=== PATIENT | female | born 1995 | race Caucasian/White ===

== ENCOUNTER 2020-05-15 12:10 | Outpatient (CLI) | payer OTHER, SELFPAY ==
[2020-05-15 13:03] LABS: Beta HCG Quantitative < 2.39 mIU/ML
== END 2020-05-15 12:11 | disposition home or self-care (01) ==
PROVIDERS: PCP Family Medicine; Visit Provider Obstetrics & Gynecology
DX: Z31.41 Encounter for fertility testing (principal)
CPT/HCPCS: 36415; 84702

== ENCOUNTER 2020-05-16 11:55 | Outpatient (CLI) | payer OTHER, SELFPAY ==
--- NOTE | ~2020-05-16 | XR_ITS ---
EXAMINATION: XR hysterosalpingogram INDICATION: Fertility assessment TECHNIQUE: Hysterosalpingogram was performed by Dr. Chris Tran MD with fluoroscopic guidance. I was present to obtain fluoroscopic images. Fluoroscopy exposure time was 0.2 minutes. The DAP for th is procedure was 0.9 Gycm2. FINDINGS: [employer] radiograph demonstrates an unremarkable pelvis. Fluoroscopic images demonstrate a no rmal appearing endometrial cavity which has been cannulated. Upon injection of contrast, both fallop bryn tubes opacify and are normal in appearance. There is free spillage bilaterally. Uterus is withou t evidence of synechia. IMPRESSION: Patent fallopian tubes. Reviewed, dictated and finalized at location A. TY SPEC IMPRESSION: Patent fallopian tubes.
== END 2020-05-16 11:56 | disposition home or self-care (01) ==
PROVIDERS: PCP Family Medicine; Visit Provider Obstetrics & Gynecology
DX: Z31.41 Encounter for fertility testing (principal)
CPT/HCPCS: 36415; 58340; 74740; 84702; Q9966

== ENCOUNTER → 2020-12-09 13:16 | Outpatient (CLI) | payer OTHER, SELFPAY ==
--- NOTE | ~2020-12-09 | US_ITS ---
EXAMINATION: US OB <= 14 weeks fetus DATE: 12/09/2020 13:41 INDICATION: First trimester dating, lower abdominal pain TECHNIQUE: Real-time pelvic transabdominal and transvaginal ultrasound was performed. COMPARISON: None. FINDINGS: The uterus measures 11.3 x 5.5 x 6.9 cm. There is an intrauterine gestational sac. A yolk sac is identified. heart motion is identified measuring 167 beats per minute (bpm) by M-mode Do ppler. The crown rump length measures 3.5 cm , which correlates with an estimated gestational a ge of 10 weeks and 2 day(s) (+/-) 6 day(s). The right ovary is not visualized however no right adnexal abnormality is seen. The left ovary measur es 5.6 x 5.5 x 5.6 cm and contains a 5 cm cyst. There is normal vascular flow in the left ovary. Ther e is no free fluid in the pelvis. IMPRESSION: 1. Live intrauterine with an estimated gestational age of 10 weeks and 2 day(s) (+/-) 6 day (s) and an estimated delivery date of 07/05/2021. Reviewed, dictated and finalized at location B. IMPRESSION: 1. Live intrauterine with an estimated gestational age of 10 weeks an d 2 day(s) (+/-) 6 day(s) and an estimated delivery date of 07/05/2021.
== END ==
PROVIDERS: Visit Provider Nurse Practitioner
DX: Z36.87 Encounter for antenatal screening for uncertain dates (principal); R10.2 Pelvic and perineal pain; Z3A.10 10 weeks gestation of pregnancy
CPT/HCPCS: 76801

== ENCOUNTER → 2021-02-07 08:45 | Outpatient (CLI) | payer OTHER, SELFPAY ==
--- NOTE | ~2021-02-07 | US_ITS ---
US OB /maternal detail DATE: 02/07/2021 09:15 INDICATION: anatomy screening TECHNIQUE: Real-time imaging and Doppler analysis COMPARISON: 12/09/2020 obstetrical ultrasound FINDINGS: The fetus is in vertex presentation, longitudinal lie. Posterior placenta, lower margin 6.3 centers above the internal os. Subjectively normal amount of amniotic fluid. cerebral ventricles, cerebellum, nuchal fold, nose and lips, spine appear normal. Four-chamber heart with normal outflow tracts. diaphragm is intact. Fluid is demonstrated in the stomach and urinary bladder. The kidneys appear normal. Three-vessel cord with normal insertion at abdominal wall. The extremities appear intact. Biparietal diameter 4.45 cm; 19 weeks 3 days Head circumference 15.89 cm; 18 weeks 5 days Abdominal circumference 14.46 cm; 19 weeks 5 days Femur length 3.12 cm; 19 weeks 5 days Composite age by Hadlock formula is 19 weeks 3 days +/- 1 week 3 days; HERMELINDA: 07/01/2021 Estimated weight is 304.2 +/- 45.6 g Estimated weight-GP: 87.7% Head circumference/abdominal circumference 1.10, within normal range of 1.08-1.26 IMPRESSION: Normal anatomy screen Reviewed, dictated and finalized at Location A. Reviewed, dictated and finalized at location A. THCARE RISK CONTROL CONSULTANT IMPRESSION: Normal anatomy screen
== END ==
PROVIDERS: Visit Provider Obstetrics & Gynecology
DX: Z36.9 Encounter for antenatal screening, unspecified (principal)
CPT/HCPCS: 76805

== ENCOUNTER 2021-02-07 13:52 | Emergency (ER) | payer OTHER, SELFPAY ==
[2021-02-07 13:55] VITALS: BP 126/77; PULSE 94; RESP 16; TEMP 36.9; O2SAT 100
[2021-02-07 15:19] LABS: Add Urine Microscopic? YES; Appearance Urine Cloudy (Clear); Bilirubin Urine Negative (Negative); Blood Urine Negative (Negative); Color Urine Yellow (Yellow); Glucose Urine UA Negative (Negative); Ketones Urine 2+ mg/dL (Negative); Leukocyte Esterase Ur Trace LEU/UL (Negative); Mucus Urine Rare /lpf; Nitrate Urine Negative (Negative); Protein Urine Negative (Negative); Specific Grav Ur 1.019 (1.001-1.035); Squamous Epithelial Cell Urine Few /hpf (Few); Urobilinogen Urine Negative mg/dL (<2.0)
--- NOTE | 2021-02-07 16:41 | ED.BACK ---
HPI - Back Pain/Injury General Chief Complaint: Back Pain/Injury Stated Complaint: right flank pain, 19 weeks preg Time Seen by Provider: 02/07/21 13:59 History of Present Illness HPI Narrative: Patient is a 25-year-old female who is 19 weeks that presents with right-sided back pain. Its inferior to the ribs and lateral that posterior to the midaxillary line. No urinary frequency urgency or dysuria. Pain is worse with twisting and standing and better with sitting down. Patient's OB recommend she be evaluated to make sure she has no UTI or kidney stones. Review of Systems Constitutional: Constitutional: Denies chills, Denies fever(s) and Denies weakness Gastrointestinal: Gastrointestinal: Denies abdominal pain, Denies diarrhea, Denies nausea and Denies vomiting Genitourinary: Genitourinary: Denies abnormal vaginal bleeding, Denies nocturia, Denies dysuria, Denies pelvic pain, Reports flank pain and Denies vaginal discharge Musculoskeletal: Musculoskeletal: Reports back pain, Denies arthralgias, Denies joint swelling and Reports muscle cramps PMFSH Past Medical History Medical History (Updated 02/07/21 @ 16:48 by Daniel Sandoval MD) Healthy female adult Surgical History Surgical History (Updated 02/07/21 @ 16:48 by Daniel Sandoval MD) No history of previous surgery Social History Social History (Updated 02/07/21 @ 16:48 by Daniel Sandoval MD) Smoking status: Never smoker Exam Narrative: GENERAL: Well-appearing, well-nourished, and in no acute distress. HEAD: Normocephalic, atraumatic. CHEST: Clear to auscultation. No respiratory distress. HEART: Regular rate and rhythm. Normal peripheral pulses. ABDOMEN: Soft, nontender, nondistended. Back: No reproducible midline tenderness of thoracic or lumbar spine. No reproducible paraspinal muscular tenderness at these levels. EXTREMITIES: Normal range of motion. No edema. NEURO: Alert and oriented x3. PSYCH: Normal mood and affect. Course Course Emergency Course: Patient informed of results. Recommend increase fluid/food intake given ketones. Discharge. Vital Signs Vital signs: Vital Signs Temperature 98.4 F 02/07/21 13:55 Pulse Rate 94 02/07/21 13:55 Respiratory Rate 16 02/07/21 13:55 Blood Pressure 126/77 02/07/21 13:55 Pulse Oximetry 100 02/07/21 13:55 Temperature 98.4 F 02/07/21 13:55 Pulse Rate 94 02/07/21 13:55 Respiratory Rate 16 02/07/21 13:55 Blood Pressure 126/77 02/07/21 13:55 Pulse Oximetry 100 02/07/21 13:55 MDM - Back Pain/Injury Lab Data Labs: Lab Results 02/07/21 Range/Units 15:05 Urine Color Yellow (Yellow) Urine Appearance Cloudy H (Clear) Urine pH 6.0 (5.0-9.0) Ur Specific [place] 1.019 (1.001-1.035) Urine Protein Negative (Negative) mg/dL Urine Glucose (UA) Negative (Negative) mg/dL Urine Ketones 2+ H (Negative) mg/dL Ur Blood (Man) Negative (Negative) Urine Nitrate Negative (Negative) Urine Bilirubin Negative (Negative) Urine Urobilinogen Negative (<2.0) mg/dL Leukocyte Esterase Rfl Trace H (Negative) ANALI/UL Urine RBC 3-5 H (0-2) /hpf Urine WBC 4-6 H /hpf Ur Squamous Epith Cells Few (Few) /hpf Urine Mucus Rare /lpf Discharge Plan Discharge Clinical Impression: Muscle spasm of back Patient Disposition: Home, Self-Care Condition: Stable Instructions: Muscle Spasm (ED) Additional Instructions: Return the ER if you have burning urination, you have fever of 100.4 ?F, you cannot keep down food or water, you have additional concerns. Take Tylenol as needed for pain. Follow-up/Referrals: Chris Tran MD [Primary Care Provider] - 1 Week
[2021-02-07 16:46] VITALS: BP 130/72; PULSE 80; RESP 18; O2SAT 99
== END 2021-02-07 16:47 | disposition home or self-care (01) ==
PROVIDERS: Emergency Provider Emergency Medicine; PCP Obstetrics & Gynecology
DX: O99.891 Other specified diseases and conditions complicating pregnancy (principal); M62.830 Muscle spasm of back; Z3A.19 19 weeks gestation of pregnancy
CPT/HCPCS: 81001; 99283

== ENCOUNTER 2021-05-26 11:05 | Outpatient (RCR) | payer OTHER, SELFPAY ==
[2021-05-12 11:45] VITALS: BP 104/69; PULSE 65
[2021-05-19 11:22] VITALS: BP 119/73; PULSE 80
--- NOTE | ~2021-05-26 | US_ITS ---
EXAMINATION: US OB BPP wo non-stress EXAM DATE: 05/12/2021 11:36 INDICATION: Small head circumference/variable decelerations. 3rd trimester. TECHNIQUE: Pelvic obstetrical transabdominal sonogram was performed by a technologist. There are mu ltiple grayscale and Doppler images available for interpretation. Comparison is made to prior examina tion from 02/07/2021. FINDINGS: There is a single fetus identified in vertex presentation with a heart rate of 145 beats p er minute. The placenta is located in the posterior position. There is no sonographic evidence of re troplacental hemorrhage identified. BIOPHYSICAL PROFILE (performed by the technologist) breathing (30 sec sustained breathing in 30 minutes): 2 out of 2 movement (3 gross body movements in 30 minutes): 2 out of 2 tone (one episode of bxfpihc-xonjlugsw-shsywqn limb movement): 2 out of 2 Amniotic fluid pocket (2 cm): 2 out of 2 Total score: 8 out of 8 IMPRESSION: 1. Single fetus with heart rate of 145 bpm. 2. Normal biophysical profile score of 8 out of 8. Reviewed, dictated and finalized at location B. NING STRATEGIST
--- NOTE | ~2021-05-26 | US_ITS ---
EXAMINATION: US OB BPP wo non-stress DATE: 05/19/2021 11:53 INDICATION: Small head circumference and variable decelerations during third trimester TECHNIQUE: Real-time pelvic ultrasound was performed. The interpreting radiologist was not present fo r the study. COMPARISON: 05/12/2021 FINDINGS: There is a single living fetus in vertex presentation. The placenta is posterior. heart rate is 146 beats per minute (bpm). Biophysical profile performed by the technologist: breathing (30 sec sustained breathing in 30 minutes): 2 out of 2 movement (3 gross body movements in 30 minutes): 2 out of 2 tone (one episode of cgnzkmf-gypeyusxn-drituva limb movement): 2 out of 2 Amniotic fluid pocket (2 cm): 2 out of 2 Total score: 8 out of 8 IMPRESSION: 1. Single living fetus in vertex presentation. 2. Biophysical profile 8 out of 8. Reviewed, dictated and finalized at location A. T VAULT CLERK
[2021-05-26 10:31] VITALS: BP 104/67; PULSE 67
== END 2021-08-10 23:59 | disposition home or self-care (01) ==
LOC: ANHOBOP 11:05
PROVIDERS: Visit Provider Obstetrics & Gynecology
DX: O36.8930 Maternal care for other specified fetal problems, third trimester, not applicable or unspecified (principal); Z3A.32 32 weeks gestation of pregnancy; Z3A.33 33 weeks gestation of pregnancy; Z3A.34 34 weeks gestation of pregnancy
CPT/HCPCS: 59025; 76819

== ENCOUNTER 2021-05-31 14:44 | Observation (INO) | payer OTHER, SELFPAY ==
[2021-05-31] VITALS (18 sets, daily range): BP systolic 109–118; BP diastolic 72–81; PULSE 77–120; O2SAT 98–100
--- NOTE | 2021-05-31 14:46 | PC.NURSE ---
[id number]- Spoke with Dr. Matias Flores, patient complaint of contractions q3 min. SVE fingertip funneling to closed. orders to give up to 3 doses of terbutaline. If contractions subside, may discharge patient to home.
[2021-05-31] MEDS: TERBUTALINE SULFATE 1 MG/ML VIAL 0.25 MG SUB-Q (14:52)
--- NOTE | 2021-06-22 08:47 | PM.OBTRLD ---
OB - Triage/Final Diagnosis Visit Information Comments/Additional reasons for admission: I have assessed the risk for this patient, Samm Albarran, and determined that she would benefit from observation care. Final Diagnosis (1) False labor before 37 completed weeks of gestation during in third trimester, antepartum: Code(s): O47.03 - False labor before 37 completed weeks of gestation, third trimester Status: Acute
== END 2021-05-31 16:02 | disposition home or self-care (01) ==
PROVIDERS: Admitting Provider Obstetrics & Gynecology; Visit Provider Obstetrics & Gynecology
DX: O47.03 False labor before 37 completed weeks of gestation, third trimester (principal); Z3A.00 Weeks of gestation of pregnancy not specified
CPT/HCPCS: 96372; G0378; G0379; J3105

== ENCOUNTER 2021-06-01 03:28 | Observation (INO) | payer OTHER, SELFPAY ==
[2021-06-01] VITALS (31 sets, daily range): BP systolic 102–127; BP diastolic 41–86; PULSE 72–121; O2SAT 97–99; BMI 27.4
--- NOTE | ~2021-06-01 | US_ITS ---
EXAMINATION: US OB follow up DATE: 06/01/2021 10:42 INDICATION: decelerations. Evaluate growth. TECHNIQUE: Real-time transabdominal obstetric ultrasound. FINDINGS: Comparison to multiple prior studies sequentially, with oldest reviewed study dated 2020. There is a single living fetus in vertex presentation. The placenta is posterior without placenta pr evia. cardiac activity and movement is noted with a heart rate of 157 beats per minute. T he amniotic fluid volume is lower normal. GILBERT measures 7.9 cm (normal range for gestational age is 7. 9-24.9 cm). The following biometric data were obtained: BPD: 77mm corresponds to gestational age 30 weeks 6 days. Head circumference: 302mm corresponds to gestational age 33 weeks 4 days. Abdominal circumference: 293mm corresponds to gestational age 33 weeks 2 days. Femur length: 66mm corresponds to gestational age 33 weeks 5 days. Estimated weight: 2144 grams +/- 321grams, 7.4% by Hadlock method. IMPRESSION: 1. Single living intrauterine in vertex presentation with an estimated gestational age of 35 weeks 1 days by inititial ultrasound. Decreased interval growth. Estimated weight is 7.4% using Hadlock method. 2. Amniotic fluid index is lower limits of normal measuring 7.9 cm. Reviewed, dictated and finalized at location A. ATIONS PLANT ATTENDANT IMPRESSION: 1. Single living intrauterine in vertex presentation with an estima vanesa gestational age of 35 weeks 1 days by inititial ultrasound. Decreased inter kayode growth. Estimated weight is 7.4% using Hadlock method. 2. Amniotic fluid index is lower limits of normal measuring 7.9 cm.
[2021-06-01 04:40] LABS: Add Urine Microscopic? YES; Appearance Urine Clear (Clear); Bacteria Urine Trace /hpf; Bilirubin Urine Negative (Negative); Blood Urine Negative (Negative); Color Urine Straw (Yellow); Glucose Urine UA Negative (Negative); Ketones Urine Negative (Negative); Leukocyte Esterase Ur 1+ LEU/UL (NEGATIVE); Mucus Urine Rare /lpf; Nitrate Urine Negative (Negative); Protein Urine Negative (Negative); Specific Grav Ur 1.008 (1.001-1.035); Squamous Epithelial Cell Urine Few /hpf (Few); Urobilinogen Urine Negative mg/dL (<2.0)
[2021-06-01] MEDS: TERBUTALINE SULFATE 1 MG/ML VIAL 0.25 MG SUB-Q ×2 (04:41→06:34)
[2021-06-01] MEDS: DEXTROSE 5%/LACTATED RINGERS 1,000 ML 999 ML IV CONT (09:14)
[2021-06-01 09:20] LABS: Basophils Percent Auto 0.2 % (0.2-1.2); Hematocrit 41.2 % (37.0-47.0); Hemoglobin 13.8 g/dL (12.0-15.0); Immature Granulocyte Absolute 0.09 K/mm3 (0.00-0.031); Immature Granulocyte Percent A 0.7 % (0-0.5); Lymphocytes Absolute Auto 1.24 K/mm3 (0.9-3.2); Lymphocytes Percent Auto 9.4 % (18.3-44.2); Mean Corpuscular HGB Conc 33.5 g/dl (32-36); Mean Corpuscular Hemoglobin 31.6 pg (26-34); Mean Corpuscular Volume 94.3 fl (80-100); Mean Platelet Volume 11.6 fl (7.4-10.4); Monocytes Absolute Auto 0.8 K/mm3 (0.1-0.6); Monocytes Percent Auto 6.1 % (2.6-8.5); Neutrophils Absolute Auto 11.1 K/mm3 (1.3-6.7); Neutrophils Percent Auto 83.6 % (45.5-73.1); Platelet Count Result 210 k/mm3 (150-375); Red Blood Count 4.37 M/mm3 (4.2-5.4); Red Cell Distribution Width 13.2 % (11.5-14.5); White Blood Count 13.2 K/mm3 (4.5-10.0)
[2021-06-01 09:35] LABS: Alanine Aminotransferase 15 U/L (4-35); Albumin Level 4.1 g/dL (3.5-5.1); Alkaline Phosphatase 163 U/L (38-126); Anion Gap 7 mmol/L (8-16); Aspartate Amino Transferase 23 U/L (14-36); Bilirubin,Total 0.4 mg/dL (0.2-1.3); Blood Urea Nitrogen 4 mg/dL (7-17); Calcium 8.8 mg/dL (8.4-10.2); Carbon Dioxide 20 mmol/L (22-30); Chloride 107 mmol/L (98-107); Estimated Glomerular Filt Rate > 60; Glucose 98 mg/dL (65-110); Potassium 3.6 mmol/L (3.4-5.0); Sodium 134 mmol/L (137-145)
[2021-06-01] MEDS: NIFEdipine 10 MG CAPSULE PO (10:46)
--- NOTE | 2021-06-01 13:34 | WPDOBADMIT ---
Obstetrics - Admit Note Admission Note: 25 y/o G1 at 35 1/7 weeks gestation here with contractions. Has felt better after IV fluids and nifedipine. No vaginal bleeding. Good movement. AVSS NST reactive TOCO: irregular contractions ABD soft, nontender, gravid, vertex EXT nontender Cervix 50/-3. Unchanged. A: IUP at 35 1/7 weeks with contractions, stable. P: Home on Procardia 10 mg po q 6 hours. F/u this week in office.
--- NOTE | 2021-06-01 13:42 | OBADM ---
This patient, Samm Albarran, admitted to the OB room Labor/Delivery/Recovery 105 for observation. Patient/family oriented to hospital policies and general routines including ID bracelet, bed and alarms, visiting hours, pain management, procedures, bathroom and other care routines, personal items, smoking policy, room service/diet, and visiting hours. Patient/Family are encouraged to report perceived risks to care and to ask questions if they do not understand what they are told or what they should do.
--- NOTE | 2021-06-02 07:42 | P.PNOB_ITS ---
OB - Triage/Final Diagnosis Visit Information Date of evaluation: 06/01/21 Reason for evaluation: threatened labor Comments/Additional reasons for admission: I have assessed the risk for this patient, Samm Albarran, and determined that she would benefit from observation care. Evaluation Laboratory results: Laboratory Tests 06/01/21 06/01/21 06/01/21 03:59 08:58 08:58 WBC 13.2 H RBC 4.37 Hgb 13.8 Hct 41.2 MCV 94.3 MCH 31.6 MCHC 33.5 RDW 13.2 Plt Count 210 MPV 11.6 H Immature Gran % (Auto) 0.7 H Neut % (Auto) 83.6 H Lymph % (Auto) 9.4 L [place] % (Auto) 6.1 Eos % (Auto) 0.0 Baso % (Auto) 0.2 Lymph # (Auto) 1.24 [place] # (Auto) 0.8 H Eos # (Auto) 0.0 Baso # (Auto) 0.0 Abs Immat Gran (auto) 0.09 H Absolute Neuts (auto) 11.1 H Absolute Nucleated RBC 0.0 Nucleated RBC % 0.0 Sodium 134 L Potassium 3.6 Chloride 107 Carbon Dioxide 20 L Anion Gap 7 L BUN 4 L Creatinine 0.50 L Estim Creat Clear Calc Not Reportable Estimated GFR > 60 Glucose 98 Calcium 8.8 Total Bilirubin 0.4 AST 23 ALT 15 Alkaline Phosphatase 163 H Total Protein 7.0 Albumin 4.1 Urine Color Straw Urine Appearance Clear Urine pH 6.0 Ur Specific [place] 1.008 Urine Protein Negative Urine Glucose (UA) Negative Urine Ketones Negative Ur Blood (Man) Negative Urine Nitrate Negative Urine Bilirubin Negative Urine Urobilinogen Negative Ur Leukocyte Esterase 1+ H Urine RBC 3-5 H Urine WBC 7-9 H Ur Squamous Epith Cells Few Urine Bacteria Trace Urine Mucus Rare Vital signs: Vital Signs - 24 hr 06/01/21 08:04 06/01/21 09:14 06/01/21 10:15 Pulse Rate 98 81 80 Blood Pressure 112/76 118/66 119/70 06/01/21 10:44 06/01/21 11:00 06/01/21 11:30 Pulse Rate 88 83 89 Blood Pressure 120/64 111/64 111/68 06/01/21 12:00 06/01/21 12:30 06/01/21 13:00 Pulse Rate 99 99 94 Blood Pressure 112/67 112/74 104/59 L 06/01/21 13:31 Pulse Rate 86 Blood Pressure 102/41 L
== END 2021-06-01 14:00 | disposition home or self-care (01) ==
PROVIDERS: Admitting Provider Obstetrics & Gynecology; Visit Provider Obstetrics & Gynecology
DX: O47.03 False labor before 37 completed weeks of gestation, third trimester (principal); Z3A.35 35 weeks gestation of pregnancy
CPT/HCPCS: 36415; 76816; 80053; 81001; 85025; 96360; 96361; 96372; A9270; G0378; G0379; J3105; J7121

== ENCOUNTER 2021-06-02 08:17 | Inpatient (IN) | payer OTHER, SELFPAY ==
[2021-06-02] VITALS (129 sets, daily range): BP systolic 80–182; BP diastolic 32–155; PULSE 42–240; RESP 16–18; TEMP 36.3–36.9; O2SAT 86–100; BMI 25.9
[2021-06-02 09:24] LABS: Basophils Percent Auto 0.3 % (0.2-1.2); Eosinophils Percent Auto 0.3 % (0-4.4); Hematocrit 40.5 % (37.0-47.0); Hemoglobin 13.8 g/dL (12.0-15.0); Immature Granulocyte Percent A 0.7 % (0-0.5); Lymphocytes Absolute Auto 2.29 K/mm3 (0.9-3.2); Lymphocytes Percent Auto 16.4 % (18.3-44.2); Mean Corpuscular HGB Conc 34.1 g/dl (32-36); Mean Corpuscular Hemoglobin 31.4 pg (26-34); Mean Corpuscular Volume 92.3 fl (80-100); Mean Platelet Volume 11.6 fl (7.4-10.4); Monocytes Absolute Auto 0.9 K/mm3 (0.1-0.6); Monocytes Percent Auto 6.6 % (2.6-8.5); Neutrophils Absolute Auto 10.6 K/mm3 (1.3-6.7); Neutrophils Percent Auto 75.7 % (45.5-73.1); Platelet Count Result 217 k/mm3 (150-375); Red Blood Count 4.39 M/mm3 (4.2-5.4); Red Cell Distribution Width 13.1 % (11.5-14.5)
[2021-06-02] MEDS: LACTATED RINGERS 1,000 ML 75 ML IV CONT ×2 (09:36→11:45)
[2021-06-02] MEDS: BETAMETHASONE SOD PHOS/ACETATE 30 MG/5 ML VIAL 12 MG IM (09:37)
[2021-06-02] MEDS: MAGNESIUM SULF 4 GM/WATER100ML 4 GM/100 ML BAG IVPB (09:37)
[2021-06-02] MEDS: AMPICILLIN 2 GM/NS 100 ML 2 GM/100 ML BAG IVPB (09:37)
[2021-06-02] MEDS: MAGNESIUM SULF 20GM/WATER500ML 500 ML 50 MG IV CONT (10:16)
--- NOTE | 2021-06-02 10:17 | LDADM ---
This patient, Samm Albarran, was admitted to OB Post 116 on 06/02/21 at 08:17. Plans for labor, pain management and were discussed with patient. Patient/family oriented to hospital policies and general routines including ID bracelet, bed and alarms, visiting hours, pain management, procedures, bathroom and other care routines, personal items, smoking policy, room service/diet and guest tray routines, infant security routines, and visiting hours. Patient/Family are encouraged to report perceived risks to care and to ask questions if they do not understand what they are told or what they should do. See OBIX for further documentation.
--- NOTE | 2021-06-02 11:38 | WPDANESEPPF ---
Anes - Initial Pre Proc Eval Procedure: labor epidural Date/Time: 06/02/21 11:38 Surgeon: Peter Styles MD Pre Op Diagnosis: labor pain Pre Op Diagnosis: Contractions Patient Data Age: 25 Gender: F Height: 1.7 m Weight: 75 kg Last Vital Signs Pulse 91 06/02/21 11:36 BP 115/77 06/02/21 11:36 Pulse Ox 100 06/02/21 11:33 Allergies Allergy/AdvReac Type Severity Reaction Status Date / Time No Known Allergies Allergy Verified 05/26/21 11:39 Home Medications Medication Instructions Recorded Confirmed Type PNV cmb#95-ferrous fumarate-FA 1 tablet PO DAILY 05/26/21 05/31/21 History [] calcium carbonate-vitamin D3 1 tablet PO DAILY 05/26/21 05/31/21 History [Calcium with Vitamin D] ergocalciferol (vitamin D2) 50,000 unit PO WEEKLY 05/26/21 05/31/21 History nifedipine 10 mg PO Q6H #30 cap 06/01/21 Rx Laboratory Tests 06/02/21 06/02/21 06/02/21 09:17 09:17 09:17 WBC 14.0 K/mm3 H K/mm3 (4.5-10.0) RBC 4.39 M/mm3 M/mm3 (4.2-5.4) Hgb 13.8 g/dL g/dL (12.0-15.0) Hct 40.5 % % (37.0-47.0) MCV 92.3 fl fl (80-100) MCH 31.4 pg pg (26-34) MCHC 34.1 g/dl g/dl (32-36) RDW 13.1 % % (11.5-14.5) Plt Count 217 k/mm3 k/mm3 (150-375) MPV 11.6 fl H fl (7.4-10.4) Immature Gran % (Auto) 0.7 % H % (0-0.5) Neut % (Auto) 75.7 % H % (45.5-73.1) Lymph % (Auto) 16.4 % L % (18.3-44.2) [place] % (Auto) 6.6 % % (2.6-8.5) Eos % (Auto) 0.3 % % (0-4.4) Baso % (Auto) 0.3 % % (0.2-1.2) Lymph # (Auto) 2.29 K/mm3 K/mm3 (0.9-3.2) [place] # (Auto) 0.9 K/mm3 H K/mm3 (0.1-0.6) Eos # (Auto) 0.0 K/mm3 K/mm3 (0-0.3) Baso # (Auto) 0.0 K/mm3 K/mm3 (0.0-0.1) Abs Immat Gran (auto) 0.10 K/mm3 H K/mm3 (0.00-0.031) Absolute Neuts (auto) 10.6 K/mm3 H K/mm3 (1.3-6.7) Absolute Nucleated RBC 0.0 K/mm3 K/mm3 (0.0-0.012) Nucleated RBC % 0.0 % % (0.0-0.2) RPR Pending Blood Type A Positive Antibody Screen Negative Patient hx anesthesia problems: none Family hx anesthesia problems: none Results Review: All pre-operative results and documents have been reviewed as part of the pre-operative evaluation. [facility] Past Medical History Medical History (Updated 02/08/21 @ 00:00 by Meera Yang) Healthy female adult Surgical History Surgical History (Updated 02/07/21 @ 16:48 by Daniel Sandoval MD) No history of previous surgery Social History Social History (Updated 02/07/21 @ 16:48 by Daniel Sandoval MD) Smoking status: Never smoker Second hand tobacco smoke exposure: No Substance use: never Spiritual care concerns: No Anes - Eval Final PreProcedure Day of Procedure 06/02/21 11:38 Patient weight: overweight ASA classification: II Anesthetic plan: proceed Anesthesia type and monitoring: regional epidural and standard monitoring Results Review: All pre-operative results and documents have been reviewed as part of the pre-operative evaluation. Informed Consent: The patient's anesthetic plan and its attendant risks and benefits were discussed with the patient/family/POA. Questions were solicited and answers provided to the satisfaction of the patient/family/POA.
[2021-06-02] MEDS: AMPICILLIN 1 GM/NS 50 ML 1 GM/50 ML BAG IVPB (13:30)
--- NOTE | 2021-06-02 13:51 | P.HP_ITS ---
Obstetrics - Admit Note Admission Note: record reviewed. Additions to the history and/or subsequent changes in the physical findings follow. 25 y/o G1 at 35 2/7 weeks here with contractions. Had been on nifedipine 10 mg po q 6 hours, but contractions increased overnight. No leakage of fluid. Good movement. Cervix found to be 4 cm on admission. She was given ampicillin, magnesium sulfate IV, and betamethasone. Contractions persisted and labor was diagnosed. Magnesium was stopped. She is now comfortable with epid ural. AVSS NST good variability TOCO: contractions every 2-4 min ABD soft, nontender, gravid, vertex EXT nontender Cervix 7-8/100/-1. AROM with clear fluid. A: IUP at 35 2/7 weeks with labor. P: Ampicillin. Anticipate . Peds aware.
[2021-06-02] MEDS: OXYTOCIN 30 UNITS/NS 500 ML 30 UNITS/500 ML BAG 999 UNITS IV CONT (15:24)
--- NOTE | 2021-06-02 15:44 | PM.OBPRVD ---
OB - Delivery Note Procedure Delivery date: 06/02/21 Procedure: Induction method: None Delivery monitor: External FHT and External Uterine Route of delivery: Laceration Description: Periurethral and Perineal - 2nd Degree Delivery repair: vicryl (3-0) Specimen: Yes (cord blood, placenta) Quantitative Blood Loss (ml): 110 Anesthesia type: Epidural Disposition: PACU Complications: None Narrative: 25 y/o G1 at 35 2/7 weeks gestation who presented to the hospital with contractions. labor was diagnosed. She received ampicillin, betamethasone and IV magnesium sulfate. However, her labor broke through tocolysis and magnesium was stopped. She received an epidural for pain control. Amniotomy was performed with return of clear fluid. Her labor progressed and her cervix dilated completely. She pushed with good effort and delivered the 's head to the perineum, followed by the body. The nose and mouth were bulb suctioned. After a delay, the cord was clamped and cut. The was handed off the field. Cord blood was collected. The placenta delivered spontaneously and was grossly normal in appearance. The usual 3 vessel cord was noted. A second degree midline perineal laceration was sustained. This was reapproximated using 3 0 Vicryl in the usual layered fashion. A right-sided periurethral laceration was reapproximated with single, interrupted sutures of the same material. Excellent hemostasis resulted as did excellent reapproximation of the normal anatomy. Needle and instrument counts were correct. The patient was taken to recovery room in stable condition. The infant went to the nursery in stable condition. I was present and scrubbed for the entire delivery. [place] Baby Date of : 06/02/21 Time of : 15:21 Weeks of gestation at delivery: 35 gender: Male Weight (pounds): 4 Weight (ounces): 5 presentation: vertex position: Left Occiput Anterior Placenta delivery description: Spontaneous and Normal Configuration Cord Vessel Description: 3 Vessels and Delayed Cord Clamping score one minute: 9 score five minutes: 9
[2021-06-02] MEDS: IBUPROFEN 600 MG TABLET PO (19:19)
[2021-06-02] MEDS: WITCH HAZEL 40 PADS 1 PAD TOPICAL (19:20)
[2021-06-02] MEDS: BENZOCAINE 20% AER SPR (*SP) 56 GM CAN 1 SPRAY TOPICAL (19:20)
--- NOTE | 2021-06-02 19:36 | OBPPTRN ---
Patient transferred to post room #290 via wheelchair. Support person present. Oriented to unit, room, information board, rooming in, admission packet and security measures. Patient verbalizes understanding.
[2021-06-03 03:45] VITALS: BP 114/75; PULSE 71; RESP 16; TEMP 36.7; O2SAT 98
[2021-06-03] MEDS: IBUPROFEN 600 MG TABLET PO ×2 (03:59→15:55)
[2021-06-03 05:09] LABS: Hematocrit 36.8 % (37.0-47.0); Hemoglobin 12.3 g/dL (12.0-15.0)
[2021-06-03 07:35] VITALS: BP 99/71; PULSE 77; RESP 18; TEMP 36.3; O2SAT 99
--- NOTE | 2021-06-03 08:30 | PM.OBPNVD ---
OB - PN: Subj Subjective Date/time seen: 06/03/21 08:30 Narrative: Pain OK. Would like circumcision for son. OB - PN: Obj Data Labs CBC & Chem 7: 06/03/21 03:43 Labs: Laboratory Results - last 24 hr 06/02/21 06/02/21 06/03/21 09:17 09:17 03:43 WBC 14.0 H RBC 4.39 Hgb 13.8 12.3 Hct 40.5 36.8 L MCV 92.3 MCH 31.4 MCHC 34.1 RDW 13.1 Plt Count 217 MPV 11.6 H Immature Gran % (Auto) 0.7 H Neut % (Auto) 75.7 H Lymph % (Auto) 16.4 L [place] % (Auto) 6.6 Eos % (Auto) 0.3 Baso % (Auto) 0.3 Lymph # (Auto) 2.29 [place] # (Auto) 0.9 H Eos # (Auto) 0.0 Baso # (Auto) 0.0 Abs Immat Gran (auto) 0.10 H Absolute Neuts (auto) 10.6 H Absolute Nucleated RBC 0.0 Nucleated RBC % 0.0 Blood Type A Positive Antibody Screen Negative OB - PN A/P Plan Comments: A: PPD#1, doing well. P: Routine care. Reviewed circ. Exam Psych: Other: AVSS ABD soft, nontender, fundus firm EXT nontender
[2021-06-03 09:25] LABS: Rapid Plasma Reagin Non-Reactive (NonReactive)
[2021-06-03] MEDS: DOCUSATE SODIUM 100 MG CAPSULE PO (10:40)
[2021-06-03] MEDS: ACETAMINOPHEN 325 MG TABLET 650 MG PO (10:41)
[2021-06-03] MEDS: MULTIVIT/MIN/PREN/FOL AC/IRON TABLET 1 TAB PO (10:41)
[2021-06-03 11:46] VITALS: BP 113/74; PULSE 75; RESP 16; TEMP 36.7; O2SAT 99
--- NOTE | 2021-06-03 14:12 | PC.NURSE ---
[id number] Introduction were made and consulted with patient to assess needs related to . Mother led conversation with her experience with feeding baby so far and her plans for feeding her 35 week old baby. is in the nursery being assessed after a circumcision. Reviewed good handwashing when working with , breast, nipples and how to protect the nipples with a deep latch and how this will be a process related to the being delivered . will receive Acetaminophen due to the circumcision and may be tired with a full stomach of medicine when he comes back to her. Encouraged understanding the benefits of skin to skin, responding to feeding cues for on demand feeding, frequencies of feeding 8-12 times in 24 hours (approximately 2-3 hours), duration of feedings, milk production, intake/output feeding sheet, signs of adequate intake, pacifier training, risks and benefits of using a nipple shield, milk production and supplementation. Discussed stimulating infant with skin to skin, hand expressing colostrum, touch and talking to to encourage eating at the breast. Resources used to facilitate learning were used from the visual handout/mom and baby guide and feeding a handout. Mother voiced understanding responding to feeding cues, may need to stimulating infant approximately 2-3 hours from the start of the last feeding, calling for assistance if the does not latch or if there is discomfort . Reported to primary RN.
--- NOTE | 2021-06-03 14:20 | PM.OBDSVD ---
DS: Admitting Diagnosis Discharge Date 06/04/21 Admitting Diagnosis IUP at 35 weeks labor DS: Discharge Diagnosis Discharge Diagnosis (1) delivery: Code(s): O60.10X0 - labor with delivery, unspecified trimester, not applicable or unspecified Status: Acute OB - DS: Summary OB Procedures : PTL Mgmt OB Procedures Intrapartum: Spontaneous Vag Delivery OB Procedures: : None DS: Data Data Completed and Pending Pending studies at discharge: Pending at discharge 06/03/21 09:19 Surgical [PTH] Routine Labs on day of discharge: Labs from last 24 hours 06/03/21 06/02/21 03:43 09:17 Hgb 12.3 Hct 36.8 L RPR Non-reactive Discharge Plan Discharge Attending physician on discharge: Peter Styles Discharging Clinician: Peter Styles Patient Disposition: Home, Self-Care Activity: pelvic rest Diet: regular Discharge Instructions: Call or return if temperature above 100.4? F, increased abdominal pain, increased vaginal bleeding or any new problems. Stand Alone Forms: General Discharge Information Follow-up/Referrals: Peter Styles MD [Physician] - 6 Weeks Discharge Medications: New ibuprofen 600 mg tablet 600 mg PO Q6H PRN (Reason: cramps) Qty: 30 RF: 0 Continued ergocalciferol (vitamin D2) 1,250 mcg (50,000 unit) capsule 50,000 unit PO WEEKLY RF: 0 calcium carbonate-vitamin D3 [Calcium with Vitamin D] 600 mg-10 mcg (400 unit) Tablet 1 tablet PO DAILY RF: 0 PNV cmb#95-ferrous fumarate-FA [] 28 mg iron- 800 mcg Tablet 1 tablet PO DAILY RF: 0 Discontinued nifedipine 10 mg capsule 10 mg PO Q6H Qty: 30 RF: 1 Date of admission: 06/02/21 10:48 Primary Care Provider: PHYSICIAN,RIBBON INKER Admitting Provider: Peter Styles Attending physician on admission: Peter Styles Condition: Stable
[2021-06-03 20:04] VITALS: BP 125/66; PULSE 85; RESP 16; TEMP 36.9; O2SAT 99
[2021-06-04] MEDS: IBUPROFEN 600 MG TABLET PO (07:44)
[2021-06-04] MEDS: MULTIVIT/MIN/PREN/FOL AC/IRON TABLET 1 TAB PO (07:44)
[2021-06-04] MEDS: DOCUSATE SODIUM 100 MG CAPSULE PO (07:44)
[2021-06-04 08:00] VITALS: BP 110/72; PULSE 77; RESP 18; TEMP 36.4; O2SAT 98
--- NOTE | 2021-06-04 08:05 | PC.NURSE ---
Patient viewed the discharge video Mother & Baby Care, The First Two Weeks . Patient was given the opportunity and encouraged to ask questions. Patient verbalized understanding of information shared and has been given the mother/baby guide for home reference.
--- NOTE | 2021-06-04 09:08 | PM.OBPNVD ---
OB - PN: Subj Subjective Date/time seen: 06/04/21 09:08 Narrative: Pain OK. Would like to go home. OB - PN: Obj Data Labs CBC & Chem 7: 06/03/21 03:43 Labs: Laboratory Results - last 24 hr 06/02/21 09:17 RPR Non-reactive OB - PN A/P Plan Comments: A: PPD#2, doing well. P: Home to f/u 6 weeks. Exam Psych: Other: AVSS ABD soft, nontender, fundus firm EXT nontender
[2021-06-05 10:55] VITALS: BP 111/79; PULSE 86; RESP 20; TEMP 37.1; O2SAT 100
== END 2021-06-04 12:15 | disposition home or self-care (01) | DRG 807 ==
LOC: ANHOBPP 08:23 → ANHLDR 10:51 → ANHOB2 20:07
PROVIDERS: Admitting Provider Obstetrics & Gynecology; Visit Provider Obstetrics & Gynecology
DX: O60.14X0 Preterm labor third trimester with preterm delivery third trimester, not applicable or unspecified (principal); Z37.0 Single live birth; Z3A.35 35 weeks gestation of pregnancy; O36.8330 Maternal care for abnormalities of the fetal heart rate or rhythm, third trimester, not applicable or unspecified; O70.1 Second degree perineal laceration during delivery; O71.82 Other specified trauma to perineum and vulva
CPT/HCPCS: 36415; 85014; 85018; 85025; 86592; 86850; 86900; 86901; 88307; A9270; J0290; J0702; J2590; J2795; J3475; J7120

== ENCOUNTER 2022-07-22 12:34 | Emergency (ER) | payer OTHER, SELFPAY ==
--- NOTE | 2022-07-22 12:43 | ED.URI ---
HPI - URI/Sore Throat General Chief Complaint: Upper Respiratory Infection Stated Complaint: Rt Ear Irritation,Sore Throat Time Seen by Provider: 07/22/22 12:44 Source: patient Mode of arrival: ambulatory Limitations: no limitations History of Present Illness HPI Narrative: Patient is a 27-year-old female that presents with sinus congestion, right ear pain, sore throat, headache started beginning of the week. States right ear is now more painful and muffled sounding. States she is prone to cerumen impaction. states 1-year-old son has similar symptoms and is being treated for allergies with steroids and an inhaler. Patient denies history of allergies but has been taking Zyrtec. Patient is 20 weeks so she has not taken multiple medications. Patient denies any shortness of breath, fever, chills. Related Data Home Medications Medication Instructions Recorded Confirmed vit no.95-ferrous 1 tablet PO DAILY 05/26/21 07/22/22 fumarate 28 mg-folic acid 800 mcg tablet () Allergies Allergy/AdvReac Type Severity Reaction Status Date / Time No Known Allergies Allergy Verified 07/22/22 12:48 Review of Systems Review of Systems: All systems reviewed & are unremarkable except as noted in HPI and below Constitutional: Constitutional: Denies body ache(s), Denies fever(s), Denies headache(s), Denies malaise and Denies weakness Eyes: Eyes: Denies loss of vision ENT: Reports otalgia, Reports headache(s), Reports nasal congestion, Denies sinus pain and Reports sore throat Cardiovascular: Cardiovascular: Denies chest pain, Denies irregular heart rhythm and Denies dyspnea Respiratory: Respiratory: Reports cough and Denies dyspnea Gastrointestinal: Gastrointestinal: Denies abdominal pain, Denies melena, Denies hematochezia, Denies diarrhea, Denies nausea and Denies vomiting Musculoskeletal: Musculoskeletal: Denies back pain, Denies myalgias and Denies arthralgias Integumentary/Breasts: Skin/Breast: Denies pruritus and Denies rash Neurologic: Denies headache(s), Denies loss of vision and Denies weakness Psychiatric: Psychiatric: Reports no additional psychiatric complaints PMFSH Past Medical History Medical History (Updated 07/22/22 @ 12:57 by Shobha Malhotra, CASIMIRO) Healthy female adult Surgical History Surgical History (System 06/11/21 @ 16:21 by Edna Philippe) No history of previous surgery Family History Family History (System 06/11/21 @ 16:21 by Edna Philippe) Grandparent Hypertension Carcinoma of colon Malignant neoplasm of prostate Family history of lung cancer Diabetes mellitus Other Acute myocardial infarction Social History Social History (System 06/11/21 @ 16:21 by Edna Philippe) Smoking status: Never smoker Second hand tobacco smoke exposure: No Alcohol intake: never Substance use: never Spiritual care concerns: No Comments At time of signature, agree with nursing past medical, surgical, social and family history. There is no relevant family history pertinent to the presenting complaint. Exam Const: General: cooperative, healthy appearing, comfortable, no acute distress and well nourished Nutritional Appearance: well nourished Orientation/consciousness: patient oriented x3 Limitations: no limitations HENMT: Head: normal to inspection, normocephalic and atraumatic Ears: hearing grossly normal bilaterally, external ears normal, TM normal on the left, EAC's normal and TM abnormal bulging on the right and erythematous on the right Face/Nose/Sinus: Normal external nose present, normal facial exam, sinuses nontender and face symmetric Face and sinus: normal facial exam, sinuses nontender and face symmetric Mouth: Yes Normal oral and palatal mucosa present, Yes lip normal and Yes moist mucous membranes Teeth and gingiva: dentition normal Throat: posterior oropharynx normal, tonsils normal and uvula midline Eyes: General: appearance dayan
[2022-07-22 12:45] VITALS: BP 132/78; PULSE 104; RESP 18; TEMP 36.1; O2SAT 100
== END 2022-07-22 13:05 | disposition home or self-care (01) ==
PROVIDERS: Emergency Provider Nurse Practitioner Family
DX: H66.91 Otitis media, unspecified, right ear (principal)
CPT/HCPCS: 99213; G0463

== ENCOUNTER 2022-08-16 08:17 | Emergency (ER) | payer OTHER, SELFPAY ==
[2022-08-16 08:32] VITALS: BP 104/73; PULSE 84; RESP 16; TEMP 36.2; O2SAT 100
--- NOTE | 2022-08-16 08:37 | ED.EAR ---
HPI - Ear Problem General Chief complaint: Ear Stated complaint: rt ear pain Time Seen by Provider: 08/16/22 08:37 Source: patient Mode of arrival: ambulatory Limitations: no limitations History of Present Illness HPI Narrative: [age] year old female presents with complaint of pain and fullness to right ear. patient taking Zyrtec daily with no relief of pain. States she was here 2 weeks ago for same complaint and took an antibiotic for a ear infection. Patient is 25 weeks . No other complaints today. All systems reviewed and negative except as noted above. Related Data Home Medications Medication Instructions Recorded Confirmed vit no.95-ferrous 1 tablet PO DAILY 05/26/21 08/16/22 fumarate 28 mg-folic acid 800 mcg tablet () Allergies Allergy/AdvReac Type Severity Reaction Status Date / Time No Known Allergies Allergy Verified 08/16/22 08:25 Review of Systems Review of Systems: CONSTITUTIONAL: Denies fever, chills, or sweats. EYES: Denies visual changes, redness, or discharge. ENT: Denies rhinorrhea, congestion, sore throat . Reports Right ear pain. CARDIOVASCULAR: Denies chest pain, palpitations, or edema. RESPIRATORY: Denies cough or dyspnea. GASTROINTESTINAL: Denies abdominal pain, nausea, vomiting, or diarrhea. GENITOURINARY: Denies dysuria or hematuria. SKIN: Denies rash or itching. MUSCULOSKELETAL: Denies back pain, joint pain, or myalgia. NEUROLOGIC: Denies headache, numbness, or weakness. PSYCHIATRIC: Denies anxiety or depression. All other systems reviewed are negative, except as documented in HPI. [facility] Past Medical History Medical History (Updated 08/16/22 @ 08:48 by Gemma Davison NP) Healthy female adult Surgical History Surgical History (System 06/11/21 @ 16:21 by Edna Philippe) No history of previous surgery Family History Family History (System 06/11/21 @ 16:21 by Edna Philippe) Grandparent Hypertension Carcinoma of colon Malignant neoplasm of prostate Family history of lung cancer Diabetes mellitus Other Acute myocardial infarction Social History Social History (System 06/11/21 @ 16:21 by Edna Philippe) Smoking status: Never smoker Second hand tobacco smoke exposure: No Alcohol intake: never Substance use: never Spiritual care concerns: No Comments At time of signature, agree with nursing past medical, surgical, social and family history. There is no relevant family history pertinent to the presenting complaint. Exam Narrative: GENERAL: This is a well-nourished, well-developed patient, in no apparent distress. HEAD: normocephalic, atraumatic. EYES: PERRL. Sclera clear/white. Vision is grossly intact. EARS: External ears normal, auditory canals clear and without drainage, left TM normal. Right TM is erythematous with fluid and slightly bulging. No perforation bilaterally. NOSE: External nose normal with no obvious nasal discharge, nares without redness, no rhinorrhea. THROAT: Mucous membranes moist, posterior pharynx clear. NECK: Neck supple, non-tender without lymphadenopathy, masses or thyromegaly. CARDIOVASCULAR: Regular rate and rhythm without murmurs, gallops, or rubs. RESPIRATORY: Clear to auscultation. Breath sounds equal bilaterally. No wheezes, rales, or rhonchi. SKIN: warm, Dry, intact with no suspicious lesions or rash, good texture and turgor. NEURO: awake, alert, and oriented to person, place and time. There were no obvious focal neurologic abnormalities. EXTREMITIES: No joint tenderness, effusion, or edema noted. Course Course Level of Care: Express Care Visit Vital Signs Vital signs: Vital Signs Temperature 36.2 C L 08/16/22 08:32 Pulse Rate 84 08/16/22 08:32 Respiratory Rate 16 08/16/22 08:32 Blood Pressure 104/73 08/16/22 08:32 Pulse Oximetry 100 08/16/22 08:32 Oxygen Delivery Room Air 08/16/22 08:32 Temperature 36.2 C L 05
== END 2022-08-16 08:49 | disposition home or self-care (01) ==
PROVIDERS: Emergency Provider Nurse Practitioner Family
DX: O99.891 Other specified diseases and conditions complicating pregnancy (principal); Z3A.25 25 weeks gestation of pregnancy; H65.01 Acute serous otitis media, right ear
CPT/HCPCS: 99213; G0463

== ENCOUNTER 2022-09-17 11:38 | Observation (INO) | payer OTHER, SELFPAY ==
--- NOTE | 2022-09-17 12:39 | PC.NURSE ---
Dr. Matias Flores updated on this pt. tracing reviewed with provider. MD aware of pt feeling movement. Pt having uterine irritability. MD ordered FFN and SVE due to prior hx of delivery.
--- NOTE | 2022-09-17 12:54 | PC.NURSE ---
FFN and SVE preformed. Cervix closed thick and high. Yellowish/green discharge noted.
[2022-09-17 14:37] LABS: Fetal Fibronectin Negative
--- NOTE | 2022-09-17 14:37 | PC.NURSE ---
Addendum entered by Niki Broderick RN 09/17/22 15:21: MD aware of pt vaginal discharge and wanted pt to follow up with Dr. Styles next Friday 09/22. Original Note: Dr. Matias Flores updated on FFN results and SVE close,thick and high. tracing reviewed with provider and uterine irritability gone. Pt has no complaints at this time. Discharge order obtained.
--- NOTE | 2022-09-21 07:10 | PM.OBTRLD ---
OB - Triage/Final Diagnosis Visit Information Reason for evaluation: threatened labor Comments/Additional reasons for admission: I have assessed the risk for this patient, Samm Jeri Albarran, and determined that she would benefit from observation care. Evaluation Laboratory results: Laboratory Tests 09/17/22 12:57 Fibronectin Negative
== END 2022-09-17 14:52 | disposition home or self-care (01) ==
PROVIDERS: Admitting Provider Obstetrics & Gynecology; Visit Provider Obstetrics & Gynecology
DX: O47.03 False labor before 37 completed weeks of gestation, third trimester (principal); Z3A.29 29 weeks gestation of pregnancy
CPT/HCPCS: 82731; G0378; G0379

== ENCOUNTER 2022-10-13 08:16 | Emergency (ER) | payer OTHER, SELFPAY ==
[2022-10-13 08:27] VITALS: BP 105/69; PULSE 103; RESP 16; TEMP 36.3; O2SAT 99
--- NOTE | 2022-10-13 08:45 | ED.URI ---
HPI - URI/Sore Throat General Chief Complaint: Upper Respiratory Infection Stated Complaint: Cough Time Seen by Provider: 10/13/22 08:33 Source: patient and RN notes reviewed Mode of arrival: ambulatory Limitations: no limitations History of Present Illness HPI Narrative: Patient presents today complaining of a 6 day history of occasionally productive cough. She is 33 weeks . Denies history of asthma or COPD. She is a nonsmoker. Son with has similar cough symptoms has been using a steroid inhaler for several months. She has not tried any [id number] treatment prior to arrival. Denies any additional symptoms. Related Data Home Medications Medication Instructions Recorded Confirmed vit no.95-ferrous 1 tablet PO DAILY 05/26/21 10/13/22 fumarate 28 mg-folic acid 800 mcg tablet () Allergies Allergy/AdvReac Type Severity Reaction Status Date / Time No Known Allergies Allergy Verified 10/13/22 08:29 Review of Systems Review of Systems: CONSTITUTIONAL: Denies body aches, fever, chills, or sweats. EYES: Denies visual changes, redness, or discharge. ENT: Denies rhinorrhea, congestion, sore throat, or otalgia. CARDIOVASCULAR: Denies chest pain, palpitations, or edema. RESPIRATORY: Denies dyspnea.+ cough GASTROINTESTINAL: Denies abdominal pain, nausea, vomiting, or diarrhea. GENITOURINARY: Denies dysuria or hematuria. SKIN: Denies rash, itching, or wounds. MUSCULOSKELETAL: Denies back pain, joint pain, or myalgia. NEUROLOGIC: Denies headache, numbness, tingling, or weakness. PSYCH: Denies depression or anxiety. [facility] Past Medical History Medical History Healthy female adult Surgical History Surgical History No history of previous surgery Family History Family History Grandparent Hypertension Carcinoma of colon Malignant neoplasm of prostate Family history of lung cancer Diabetes mellitus Other Acute myocardial infarction Social History Social History Smoking status: Never smoker Second hand tobacco smoke exposure: No Alcohol intake: never Substance use: never Spiritual care concerns: No Comments At time of signature, I have reviewed and agree with nursing past medical, surgical, social and family history unless otherwise noted. Please see nursing chart for further information. There is no relevant family history pertinent to the presenting complaint Exam Narrative: GENERAL: Well-appearing, well-nourished, and in no acute distress. HEAD: Normocephalic, atraumatic. EYES: EOMI. No redness or drainage. Conjunctivae normal. ENT: Mucous membranes pink and moist. Nares clear. No rhinorrhea. TMs normal bilaterally. Throat normal. Uvula midline. NECK: Normal AROM. Supple. No lymphadenopathy. CHEST: No respiratory distress. Clear to auscultation. No cough appreciated during exam. HEART: Regular rate and rhythm. No murmur appreciated. Normal peripheral pulses. ABDOMEN: Soft, nontender, normal active bowel sounds. Gravid abdomen EXTREMITIES: Normal range of motion. SKIN: Warm, dry, no rash. Capillary refill normal. Normal skin turgor. NEURO: No focal deficits. Alert and oriented x3. Gait steady. PSYCH: Normal affect. No signs of depression or anxiety. Course Course Level of Care: Express Care Visit Vital Signs Vital signs: Vital Signs Temperature 97.3 F L 10/13/22 08:27 Pulse Rate 103 H 10/13/22 08:27 Respiratory Rate 16 10/13/22 08:27 Blood Pressure 105/69 10/13/22 08:27 Pulse Oximetry 99 10/13/22 08:27 Oxygen Delivery Room Air 10/13/22 08:27 Temperature 97.3 F L 10/13/22 08:27 Pulse Rate 103 H 10/13/22 08:27 Respiratory Rate 16 10/13/22 08:27 Blood Pressur
== END 2022-10-13 08:50 | disposition home or self-care (01) ==
PROVIDERS: Emergency Provider Nurse Practitioner
DX: O99.891 Other specified diseases and conditions complicating pregnancy (principal); Z3A.33 33 weeks gestation of pregnancy; R05.1 Acute cough
CPT/HCPCS: 99211; G0463

== ENCOUNTER 2022-11-12 02:38 | Inpatient (IN) | payer OTHER, SELFPAY ==
[2022-11-12] VITALS (172 sets, daily range): BP systolic 89–168; BP diastolic 47–122; PULSE 55–186; RESP 18; TEMP 36.2–37.7; O2SAT 87–100; BMI 33.3
[2022-11-12] MEDS: LACTATED RINGERS 1,000 ML 125 ML IV CONT ×3 (06:15→12:26)
[2022-11-12 06:17] LABS: Basophils Percent Auto 0.3 % (0.2-1.2); Eosinophils Absolute Auto 0.1 K/mm3 (0-0.3); Eosinophils Percent Auto 0.9 % (0-4.4); Hematocrit 42.3 % (37.0-47.0); Hemoglobin 13.9 g/dL (12.0-15.0); Immature Granulocyte Absolute 0.16 K/mm3 (0.00-0.031); Immature Granulocyte Percent A 1.4 % (0-0.5); Lymphocytes Absolute Auto 2.46 K/mm3 (0.9-3.2); Mean Corpuscular HGB Conc 32.9 g/dl (32-36); Mean Corpuscular Hemoglobin 30.5 pg (26-34); Mean Platelet Volume 11.5 fl (7.4-10.4); Monocytes Absolute Auto 0.9 K/mm3 (0.1-0.6); Neutrophils Percent Auto 68.4 % (45.5-73.1); Platelet Count Result 189 k/mm3 (150-375); Red Blood Count 4.55 M/mm3 (4.2-5.4); Red Cell Distribution Width 13.9 % (11.5-14.5); White Blood Count 11.7 K/mm3 (4.5-10.0)
--- NOTE | 2022-11-12 06:26 | LDADM ---
This patient, Samm Albarran, was admitted to Labor/Delivery/Recovery 106 on 11/12/22 at 05:03. Plans for labor, pain management and were discussed with patient. Patient/family oriented to hospital policies and general routines including ID bracelet, bed and alarms, visiting hours, pain management, procedures, bathroom and other care routines, personal items, smoking policy, room service/diet and guest tray routines, infant security routines, and visiting hours. Patient/Family are encouraged to report perceived risks to care and to ask questions if they do not understand what they are told or what they should do. See OBIX for further documentation.
--- NOTE | 2022-11-12 07:03 | PM.IMHP ---
H&P: HPI History of Present Illness Date/Time: 11/12/22 07:03 Chief Complaint: labor at term Narrative: this is 27-year-old 2 para 0101 with a previous delivery at 35 weeks admitted in active labor. Her last menstrual period was February of 2022. EDC is 11/27/2022, confirmed by 7 week ultrasound presenting at 38 weeks gestation in active labor. She is negative for group B strep. She had an abnormal diabetic screen but passed her 3hour. [facility] Past Medical History Medical History Healthy female adult Surgical History Surgical History No history of previous surgery Family History Family History Grandparent Hypertension Carcinoma of colon Malignant neoplasm of prostate Family history of lung cancer Diabetes mellitus Other Acute myocardial infarction Social History Social History Smoking status: Never smoker Second hand tobacco smoke exposure: No Alcohol intake: never Substance use: never Lack of Transportation: No Lack of Food: Never True Current Housing: I Have Housing Concerned About Future Housing: No Difficulty Paying Gas/Electric Bills: No Difficulty Paying for Meds: No Currently Unemployed: No Education: High School Diploma/GED Difficulty w/ Childcare or Family Care: No Spiritual care concerns: No Meds Home Medications and Allergies Home Medications Medication Instructions Recorded Confirmed Type vit no.95-ferrous 1 tablet PO DAILY 05/26/21 11/12/22 History fumarate 28 mg-folic acid 800 mcg tablet () Allergies Allergy/AdvReac Type Severity Reaction Status Date / Time No Known Allergies Allergy Verified 11/12/22 06:25 Vital Signs Vital Signs - 24 hr 11/12/22 02:56 11/12/22 03:00 11/12/22 03:06 Temperature 97.6 F Pulse Rate 95 101 H Blood Pressure 119/85 119/82 Oxygen Delivery 11/12/22 06:06 11/12/22 06:02 11/12/22 06:23 Temperature 97.2 F L Pulse Rate 105 H Blood Pressure 133/79 Oxygen Delivery Room Air Exam Const: General: cooperative, healthy appearing and comfortable Nutritional Appearance: average body habitus Orientation/consciousness: oriented to person, oriented to place and oriented to time Resp: Effort & Inspection: normal respiratory effort Cardio: Rate: regular rate Rhythm: regular rhythm Heart sounds: S1 normal heart sound present and S2 normal heart sound present GI: Inspection: normal to inspection : External Female Exam: normal external appearance Speculum Exam - Vagina: normal appearance of the vagina Speculum Exam - Cervix: normal appearance of the cervix (3cm . FHTs reassured) H&P: Results Labs Labs: Short CBC 11/12/22 Range/Units 05:39 WBC 11.7 H (4.5-10.0) K/mm3 Hgb 13.9 (12.0-15.0) g/dL Hct 42.3 (37.0-47.0) % Plt Count 189 (150-375) k/mm3 Assessment and Plan Assessment and plan (1) Term : Code(s): Z34.90 - Encounter for supervision of normal , unspecified, unspecified trimester Status: Acute Plan spontaneous vaginal delivery expected. She has an epidural candidate and is having that placed presently.
--- NOTE | 2022-11-12 10:09 | PM.OBPNLAB ---
Pain Control Date/time seen: 11/12/22 10:09 Pain control: tolerating well and epidural Pelvic Exam Dilation (cm): 4 Effacement (%): 100 station: -1 Amniotic membrane status: Leaking
--- NOTE | 2022-11-12 10:12 | WPDANESEPP ---
Anes - Eval Pre Procedure Procedure: labor epidural Date/Time: 11/12/22 10:12 Surgeon: wesly Preop Diagnosis: pain during labor Pre Op Diagnosis: Bleeding Patient Data Age: 27 Gender: F Height: 1.68 m Weight: 93.6 kg Last Vital Signs Temp 36.8 C 11/12/22 08:00 Pulse 96 11/12/22 10:00 BP 112/72 11/12/22 10:00 Pulse Ox 100 11/12/22 10:07 O2 Del Method Room Air 11/12/22 06:23 Allergies Allergy/AdvReac Type Severity Reaction Status Date / Time No Known Allergies Allergy Verified 11/12/22 06:25 Home Medications Medication Instructions Recorded Confirmed Type vit no.95-ferrous 1 tablet PO DAILY 05/26/21 11/12/22 History fumarate 28 mg-folic acid 800 mcg tablet () Laboratory Tests 11/12/22 05:39 WBC 11.7 H K/mm3 (4.5-10.0) RBC 4.55 M/mm3 (4.2-5.4) Hgb 13.9 g/dL (12.0-15.0) Hct 42.3 % (37.0-47.0) MCV 93.0 fl (80-100) MCH 30.5 pg (26-34) MCHC 32.9 g/dl (32-36) RDW 13.9 % (11.5-14.5) Plt Count 189 k/mm3 (150-375) MPV 11.5 H fl (7.4-10.4) Immature Gran % (Auto) 1.4 H % (0-0.5) Neut % (Auto) 68.4 % (45.5-73.1) Lymph % (Auto) 21.0 % (18.3-44.2) [place] % (Auto) 8.0 % (2.6-8.5) Eos % (Auto) 0.9 % (0-4.4) Baso % (Auto) 0.3 % (0.2-1.2) Lymph # (Auto) 2.46 K/mm3 (0.9-3.2) [place] # (Auto) 0.9 H K/mm3 (0.1-0.6) Eos # (Auto) 0.1 K/mm3 (0-0.3) Baso # (Auto) 0.0 K/mm3 (0.0-0.1) Abs Immat Gran (auto) 0.16 H K/mm3 (0.00-0.031) Absolute Neuts (auto) 8.0 H K/mm3 (1.3-6.7) Absolute Nucleated RBC 0.0 K/mm3 (0.0-0.012) Nucleated RBC % 0.0 % (0.0-0.2) RPR Pending Blood Type A Positive Antibody Screen Negative Patient hx anesthesia problems: none Family hx anesthesia problems: none Results Review: All pre-operative results and documents have been reviewed as part of the pre-operative evaluation. [facility] Past Medical History Medical History Healthy female adult Surgical History Surgical History No history of previous surgery Family History Family History Grandparent Hypertension Carcinoma of colon Malignant neoplasm of prostate Family history of lung cancer Diabetes mellitus Other Acute myocardial infarction Social History Social History Smoking status: Never smoker Second hand tobacco smoke exposure: No Alcohol intake: never Substance use: never Lack of Transportation: No Lack of Food: Never True Current Housing: I Have Housing Concerned About Future Housing: No Difficulty Paying Gas/Electric Bills: No Difficulty Paying for Meds: No Currently Unemployed: No Education: High School Diploma/GED Difficulty w/ Childcare or Family Care: No Spiritual care concerns: No Exam Day of Procedure 11/12/22 10:12
[2022-11-12 11:03] LABS: Rapid Plasma Reagin Non-Reactive (NonReactive)
[2022-11-12] MEDS: OXYTOCIN 30 UNITS/NS 500 ML 30 UNITS/500 ML BAG IV CONT (12:15)
--- NOTE | 2022-11-12 12:44 | PM.OBPNLAB ---
Pain Control Date/time seen: 11/12/22 12:44 Pain control: tolerating well and epidural Pelvic Exam Dilation (cm): 10 Effacement (%): 100 station: -1 Amniotic membrane status: Leaking
--- NOTE | 2022-11-12 16:15 | PM.OBPRVD ---
OB - Delivery Note Procedure Delivery date: 11/12/22 Induction method: None Delivery monitor: External FHT and External Uterine Route of delivery: Episiotomy description: None Laceration Description: None Specimen: No Quantitative Blood Loss (ml): 160 Anesthesia type: Epidural Disposition: Floor Baby Date of : 11/12/22 Time of : 16:08 Weeks of gestation at delivery: 37 gender: Female presentation: vertex position: Right Occiput Anterior Placenta delivery description: Spontaneous Cord Vessel Description: 3 Vessels score one minute: 9 score five minutes: 9
[2022-11-12] MEDS: OXYTOCIN 30 UNITS/NS 500 ML 30 UNITS/500 ML BAG 125 UNITS IV CONT (16:47)
--- NOTE | 2022-11-12 19:10 | PC.NURSE ---
Patient transferred to post room # [id number] via (W/C ). Support person present. Oriented to unit, room, information board, rooming in, admission packet and security measures. Patient verbalizes understanding.
[2022-11-12] MEDS: IBUPROFEN 600 MG TABLET PO (20:08)
[2022-11-12] MEDS: ACETAMINOPHEN 325 MG TABLET 650 MG PO (21:33)
[2022-11-13 00:45] VITALS: BP 117/72; PULSE 80; RESP 18; TEMP 36.6; O2SAT 98
[2022-11-13 06:12] LABS: Hematocrit 37.1 % (37.0-47.0); Hemoglobin 11.9 g/dL (12.0-15.0)
--- NOTE | 2022-11-13 06:38 | P.DS_ITS ---
DS: Admitting Diagnosis Discharge Date 11/13/2022 Admitting Diagnosis term DS: Discharge Diagnosis Discharge Diagnosis (1) Term : Code(s): Z34.90 - Encounter for supervision of normal , unspecified, unspecified trimester Status: Acute DS: Summary Hospital Course Reason for hospitalization: labor at term Hospital Course: is a 27-year-old multipara who is admitted at 37 and 6 7th weeks gestation with ruptured membranes. She underwent spontaneous vaginal delivery on 11/12/2022. Her hospital course unremarkable. She remained afebrile. She was up, voiding without difficulty, ambulating, eating regular diet, generally without complaints. Time Spent with Patient Time attestation: Total time spent providing and/or coordinating discharge services: Exam Const: General: cooperative, healthy appearing and comfortable Nutritional Appearance: average body habitus Orientation/consciousness: oriented to person, oriented to place and oriented to time HENMT: Head: normal to inspection Resp: Effort & Inspection: normal respiratory effort Cardio: Rate: regular rate Rhythm: regular rhythm Heart sounds: S1 normal heart sound present and S2 normal heart sound present GI: Inspection: normal to inspection DS: Data Data Completed and Pending Labs on day of discharge: Labs from last 24 hours 11/13/22 11/12/22 05:44 05:39 Hgb 11.9 L Hct 37.1 RPR Non-reactive Antibody Screen Negative Discharge Plan Discharge Attending physician on discharge: Jef Stockton Discharging Clinician: Jef Stockton Patient Disposition: Home, Self-Care Activity: may shower and no straining Diet: heart healthy Patient Instructions: Antibiotic Form Stand Alone Forms: General Discharge Information Follow-up/Referrals: Peter Styles MD [Physician] - Discharge Medications: Continued PNV [id number] [] 28 mg iron- 800 mcg Tablet 1 tablet PO DAILY Date of admission: 11/12/22 05:03 Primary Care Provider: PHYSICIAN,MAINTENANCE TECHNICIAN 3RD SHIFT Admitting Provider: Peter Styles Attending physician on admission: Peter Styles Condition: Stable
--- NOTE | 2022-11-13 06:41 | P.PNOB_ITS ---
OB - PN: Subj Subjective Date/time seen: 11/13/22 06:41 Patient comments: no complaints and pain well controlled baby status: doing well OB - PN: Obj Data Labs 11/13/22 05:44 Labs: Laboratory Results - last 24 hr 11/12/22 11/13/22 05:39 05:44 Hgb 11.9 L Hct 37.1 RPR Non-reactive Antibody Screen Negative OB - PN A/P Plan day: 1 Plan: routine care Time Spent With Patient Time: Total time spent is greater than 50% in coordination of care (as documented) at patient's floor/unit and/or counseling patient: Time with patient: less than 15 minutes Exam Const: General: cooperative, healthy appearing and comfortable Nutritional Appearance: average body habitus Orientation/consciousness: oriented to per son, oriented to place and oriented to time HENMT: Head: normal to inspection Resp: Effort & Inspection: normal respiratory effort Cardio: Rate: regular rate Rhythm: regular rhythm Heart sounds: S1 normal heart sound present and S2 normal heart sound present GI: Inspection: normal to inspection
[2022-11-13 08:30] VITALS: BP 115/76; PULSE 91; RESP 18; TEMP 36.8; O2SAT 100
[2022-11-13] MEDS: IBUPROFEN 600 MG TABLET PO (08:56)
[2022-11-13] MEDS: MULTIVIT/MIN/PREN/FOL AC/IRON TABLET 1 TAB PO (08:56)
[2022-11-13 12:00] VITALS: BP 113/62; PULSE 82; RESP 16; TEMP 36.5; O2SAT 100
--- NOTE | 2022-11-13 14:37 | WPDANLDPN2 ---
Anes-Prog Note L&D Date/Time: 11/13/22 14:37 Comfortable throughout: labor and delivery Neuraxial method: epidural Epidural/Spinal procedure site: clean & non-tender Neuro status: Neuro function grossly intact. Cardiovascular status: normal Respiratory status: normal Airway patency: baseline Mental status: baseline Post-Op hydration status: normal Vital Signs: Last Vital Signs Temp 97.7 F 11/13/22 12:00 Pulse 82 11/13/22 12:00 Resp 16 11/13/22 12:00 BP 113/62 11/13/22 12:00 Pulse Ox 100 11/13/22 12:00 O2 Del Method Room Air 11/12/22 20:58 Pain score (VAS): 0 I/O: Intake & Output 11/12/22 11/13/22 11/13/22 23:59 07:59 15:59 Intake Total 500 240 Output Total 160 Balance 340 240 Post-procedural complaints: none Patient feedback: Patient satisfied with anesthetic care.
[2022-11-15 10:22] VITALS: BP 116/75; PULSE 80; RESP 18; TEMP 36.7; O2SAT 100
== END 2022-11-13 18:00 | disposition home or self-care (01) | DRG 807 ==
LOC: ANHLDR 02:45 → ANHOB2 11-13 06:41 → ANHLDR 11-15 13:16 → ANHOB2 11-15 13:16
PROVIDERS: Admitting Provider Obstetrics & Gynecology; Visit Provider Obstetrics & Gynecology
DX: O80 Encounter for full-term uncomplicated delivery (principal); Z37.0 Single live birth; Z3A.37 37 weeks gestation of pregnancy
CPT/HCPCS: 36415; 85014; 85018; 85025; 86592; 86850; 86900; 86901; A9270; J2590; J2795; J7120

== ENCOUNTER 2023-03-12 12:08 | Emergency (ER) | payer OTHER, SELFPAY ==
[2023-03-12 12:42] VITALS: BP 136/89; PULSE 106; RESP 18; TEMP 35.9; O2SAT 99
--- NOTE | 2023-03-12 13:42 | ED.GENADULT ---
HPI - General Adult General Chief complaint: Upper Respiratory Infection Stated complaint: sorethroat History of Present Illness HPI narrative: 27-year-old female presenting for complaint of sore throat and postnasal drainage for 2 days. Denies shortness of breath, wheezing, nausea, vomiting, fevers or chills. Related Data Home Medications Medication Instructions Recorded Confirmed No Home Medications 03/12/23 03/12/23 Allergies Allergy/AdvReac Type Severity Reaction Status Date / Time No Known Allergies Allergy Verified 03/12/23 13:07 Review of Systems Review of Systems: CONSTITUTIONAL: Denies body aches, fever, chills, or sweats. EYES: Denies visual changes, redness, or discharge. ENT: Reports rhinorrhea, sore throat CARDIOVASCULAR: Denies chest pain, palpitations, or edema. RESPIRATORY: Denies dyspnea. GASTROINTESTINAL: Denies abdominal pain, nausea, vomiting, or diarrhea. SKIN: Denies rash, itching, or wounds. MUSCULOSKELETAL: Denies back pain, joint pain, or myalgia. NEUROLOGIC: Denies headache PMFSH Past Medical History Medical History Healthy female adult Surgical History Surgical History No history of previous surgery Family History Family History Grandparent Hypertension Carcinoma of colon Malignant neoplasm of prostate Family history of lung cancer Diabetes mellitus Other Acute myocardial infarction Social History Social History Smoking status: Never smoker Second hand tobacco smoke exposure: No Alcohol intake: never Substance use: never Lack of Transportation: No Lack of Food: Never True Current Housing: I Have Housing Concerned About Future Housing: No Difficulty Paying Gas/Electric Bills: No Difficulty Paying for Meds: No Currently Unemployed: No Education: High School Diploma/GED Difficulty w/ Childcare or Family Care: No Spiritual care concerns: No Exam Narrative: GENERAL: well-appearing, no acute distress. EYES: conjunctivae clear ENT: Mucous membranes moist. TMs pearly mejia with normal light reflex bilaterally; no tragal tenderness. Oropharynx erythematous without lesions. Tonsils absent; No drooling, no hoarseness, no trismus, uvula midline. No tripod positioning, hot potato voice, or soft palate swelling. NECK: Supple. No lymphadenopathy CHEST: Clear to auscultation, breath sounds equal. No respiratory distress, speaks in full sentences. HEART: Regular rate and rhythm. No murmur heard. SKIN: Warm, dry, no rash. NEURO: Alert and oriented x3. Course Course Emergency Course: Patient is aware of diagnosis, understands and agrees to treatment plan. Anticipatory guidance given. Patient agrees to follow-up as directed and is aware of reasons to seek care at the emergency department. Portions of this record may have been created with voice recognition software Level of Care: Express Care Visit Vital Signs Vital signs: Vital Signs Temperature 96.7 F L 03/12/23 12:42 Pulse Rate 106 H 03/12/23 12:42 Respiratory Rate 18 03/12/23 12:42 Blood Pressure 136/89 03/12/23 12:42 Pulse Oximetry 99 03/12/23 12:42 Oxygen Delivery Room Air 03/12/23 12:42 Temperature 96.7 F L 03/12/23 12:42 Pulse Rate 106 H 03/12/23 12:42 Respiratory Rate 18 03/12/23 12:42 Blood Pressure 136/89 03/12/23 12:42 Pulse Oximetry 99 03/12/23 12:42 Oxygen Delivery Room Air 03/12/23 12:42 Medical Decision Making MDM Narrative Medical decision making narrative: Strep negative, results reviewed with patient. Discussed physical exam findings. Advised supportive measures and signs/symptoms to go to the ER. Pt is appropriate for outpt treatment and f/u. Differential Diagnosis Differential Riddhi
== END 2023-03-12 13:54 | disposition home or self-care (01) ==
PROVIDERS: Emergency Provider Nurse Practitioner Family
DX: J06.9 Acute upper respiratory infection, unspecified (principal)
CPT/HCPCS: 87081; 87880; 99213; G0463

== ENCOUNTER 2023-03-14 14:42 | Emergency (ER) | payer OTHER, SELFPAY ==
[2023-03-14 14:52] VITALS: BP 123/73; PULSE 89; RESP 16; TEMP 36.2; O2SAT 100
--- NOTE | 2023-03-14 15:18 | ED.EAR ---
HPI - Ear Problem General Chief complaint: Ear Stated complaint: bilateral ear pain Source: patient Mode of arrival: ambulatory Limitations: no limitations History of Present Illness HPI Narrative: 27-year-old female presents to [facility] with complaints of bilateral ear pain, right is worse than left, mild runny nose and congestion since yesterday. Patient reports history of ear infections. Patient has been taking [id number] Tylenol with minimal relief. Patient is not . Patient denies body aches, chills, fever, nausea, vomiting or diarrhea. Patient was evaluated here on March 12, diagnosed with a viral upper respiratory infection and was prescribed no medications at that time. Location: bilateral Severity: mild Relieving factors: nothing Exacerbating factors: nothing Discharge from ear: Reports no Treatment prior to arrival: oral analgesic Related Data Allergies Allergy/AdvReac Type Severity Reaction Status Date / Time No Known Allergies Allergy Verified 03/14/23 14:54 Review of Systems Constitutional: Constitutional: Denies chills, Denies fatigue, Denies fever(s) and Denies weakness ENT: Denies dizziness, Denies epistaxis and Denies nasal congestion Comments: Bilateral ear pain Cardiovascular: Cardiovascular: Denies chest pain Respiratory: Respiratory: Denies cough, Denies dyspnea and Denies wheezing Gastrointestinal: Gastrointestinal: Denies diarrhea, Denies nausea and Denies vomiting Musculoskeletal: Musculoskeletal: Denies arthralgias and Denies joint swelling Integumentary/Breasts: Skin/Breast: Denies rash Neurologic: Denies dizziness, Denies syncope and Denies headache(s) [facility] Past Medical History Medical History Healthy female adult Surgical History Surgical History No history of previous surgery Family History Family History Grandparent Hypertension Carcinoma of colon Malignant neoplasm of prostate Family history of lung cancer Diabetes mellitus Other Acute myocardial infarction Social History Social History Smoking status: Never smoker Second hand tobacco smoke exposure: No Alcohol intake: never Substance use: never Lack of Transportation: No Lack of Food: Never True Current Housing: I Have Housing Concerned About Future Housing: No Difficulty Paying Gas/Electric Bills: No Difficulty Paying for Meds: No Currently Unemployed: No Education: High School Diploma/GED Difficulty w/ Childcare or Family Care: No Spiritual care concerns: No Comments At time of signature, I agree with nursing past medical, surgical, social and family history. There is no relevant family history pertinent to the presenting complaint. Exam Const: General: healthy appearing and no acute distress Nutritional Appearance: well nourished Orientation/consciousness: patient oriented x3 Limitations: no limitations HENMT: Head: normal to inspection Ears: external ears normal, EAC's normal and TM abnormal erythematous bilateral Face/Nose/Sinus: Normal external nose present Face and sinus: normal facial exam Mouth: Yes Normal oral and palatal mucosa present, Yes lip normal and Yes moist mucous membranes Teeth and gingiva: dentition normal Throat: posterior oropharynx normal and uvula midline Eyes: Conjunctivae: conjunctivae normal Resp: Effort & Inspection: normal respiratory effort and not labored Auscultation: clear to auscultation bilaterally, no crackles, no rales, no rhonchi and no wheezes Cardio: Rate: regular rate Rhythm: regular rhythm Heart sounds: no murmurs Skin: General skin exam: normal color Neuro: General: patient oriented x3 Psych: Affect: normal affect Attitude: cooperative Course Course Level of Ca
== END 2023-03-14 15:23 | disposition home or self-care (01) ==
PROVIDERS: Emergency Provider Nurse Practitioner Family
DX: H66.93 Otitis media, unspecified, bilateral (principal)
CPT/HCPCS: 99213; G0463

== ENCOUNTER 2023-09-04 09:46 | Emergency (ER) | payer OTHER, SELFPAY ==
[2023-09-04 09:53] VITALS: BP 126/78; PULSE 126; RESP 16; TEMP 36.6; O2SAT 99
--- NOTE | 2023-09-04 09:53 | ED.URI ---
HPI - URI/Sore Throat General Chief Complaint: Upper Respiratory Infection Stated Complaint: Sore Throat,Lt Ear Irritation Time Seen by Provider: 09/04/23 09:59 Source: patient and RN notes reviewed Mode of arrival: ambulatory Limitations: no limitations History of Present Illness HPI Narrative: 28-year-old female presents with concern for sore throat and left ear pain that started yesterday. She denies headache, stomachache, nasal congestion, rhinorrhea, cough. She reports she has taken Tylenol. She denies rash. MD elicited complaint: sore throat Related Data Home Medications Medication Instructions Recorded Confirmed fluoxetine 20 mg capsule 20 mg PO DAILY 09/04/23 09/04/23 Allergies Allergy/AdvReac Type Severity Reaction Status Date / Time No Known Allergies Allergy Verified 09/04/23 09:51 Review of Systems Review of Systems: CONSTITUTIONAL: Denies malaise, chills, sweats, or fever. EYES: Denies visual changes, redness, or discharge. ENT: Denies rhinorrhea, congestion, sinus pain. Reports otalgia and sore throat. CARDIOVASCULAR: Denies chest pain, palpitations, or edema. RESPIRATORY: Denies cough. Denies dyspnea. GASTROINTESTINAL: Denies abdominal pain, nausea, vomiting, diarrhea SKIN: Denies rash or itching. MUSCULOSKELETAL: Denies myalgia. NEUROLOGIC: Denies headache. All systems reviewed & are unremarkable except as noted in HPI and below PMFSH Past Medical History Medical History Healthy female adult Surgical History Surgical History No history of previous surgery Family History Family History Grandparent Hypertension Carcinoma of colon Malignant neoplasm of prostate Family history of lung cancer Diabetes mellitus Other Acute myocardial infarction Social History Social History Smoking status: Never smoker Second hand tobacco smoke exposure: No Alcohol intake: never Substance use: never Lack of Transportation: No Lack of Food: Never True Current Housing: I Have Housing Concerned About Future Housing: No Difficulty Paying Gas/Electric Bills: No Difficulty Paying for Meds: No Currently Unemployed: No Education: High School Diploma/GED Difficulty w/ Childcare or Family Care: No Spiritual care concerns: No Comments At time of signature, agree with nursing past medical, surgical, social and family history. There is no relevant family history pertinent to the presenting complaint Exam Narrative: GENERAL: Well-appearing, well-nourished, and in no acute distress. HEAD: Normocephalic EYES: PERRLA, conjunctivae clear ENT: Nares clear. Mucous membranes moist. TM pearly mejia with sharp light reflex bilaterally; no tragal tenderness. Oropharynx erythematous without lesions. Tonsils not enlarged and without exudate, no drooling, no hoarseness, no trismus, uvula midline. NECK: Supple. No lymphadenopathy CHEST: Clear to auscultation, breath sounds equal. No wheezing, rhonchi, rales, or stridor. No respiratory distress, speaks in full sentences. HEART: Regular rate and rhythm. No murmur heard. SKIN: Warm, dry, no rash. NEURO: Alert and oriented x3. PSYCH: Normal mood and affect Course Course Emergency Course: Patient is aware of diagnosis, understands and agrees to treatment plan. Anticipatory guidance given. Patient agrees to follow-up as directed and is aware of reasons to seek care at the emergency department. Portions of this record may have been created with voice recognition software Level of Care: Express Care Visit Vital Signs Vital signs: Vital Signs Temperature 97.8 F 09/04/23 09:53 Pulse Rate 126 H 09/04/23 09:53 Respiratory Rate 16 09/04/23 09:53 Blood Pressure 126/78 09/04/23 09:53 Pulse Oximetry 99 0
== END 2023-09-04 10:15 | disposition home or self-care (01) ==
PROVIDERS: Emergency Provider Nurse Practitioner
DX: J02.0 Streptococcal pharyngitis (principal)
CPT/HCPCS: 87880; 99213; G0463

== ENCOUNTER 2023-09-24 12:15 | Emergency (ER) | payer OTHER, SELFPAY ==
--- NOTE | 2023-09-24 12:22 | ED.GENADULT ---
HPI - General Adult General Chief complaint: Upper Respiratory Infection Stated complaint: throat soreness Time Seen by Provider: 09/24/23 12:22 Source: patient Mode of arrival: ambulatory Limitations: no limitations History of Present Illness HPI narrative: 28-year-old female patient presents to [facility] with complaints of a sore throat for the past 2 days. Patient states she was recently diagnosed and treated at the earlier of the month with strep throat with penicillin. Patient states the symptoms of only a sore throat has come box back in the exact same spot that she had before. Patient denies any other symptoms denies any fevers, body aches or chills. Denies headache, nausea, vomiting or diarrhea. Related Data Home Medications Medication Instructions Recorded Confirmed fluoxetine 20 mg capsule 20 mg PO DAILY 09/04/23 09/04/23 Allergies Allergy/AdvReac Type Severity Reaction Status Date / Time No Known Allergies Allergy Verified 09/24/23 12:47 Review of Systems Review of Systems: CONSTITUTIONAL: Denies fever, chills, or sweats. EYES: Denies visual changes, redness, or discharge. ENT: Denies rhinorrhea, congestion, Positive sore throat, denies otalgia. CARDIOVASCULAR: Denies chest pain, palpitations, or edema. RESPIRATORY: Denies cough or dyspnea. GASTROINTESTINAL: Denies abdominal pain, nausea, vomiting, or diarrhea. GENITOURINARY: Denies dysuria or hematuria. SKIN: Denies rash or itching. MUSCULOSKELETAL: Denies back pain, joint pain, or myalgia. NEUROLOGIC: Denies headache, numbness, or weakness. PSYCHIATRIC: Denies anxiety or depression. [facility] Past Medical History Medical History Healthy female adult Surgical History Surgical History No history of previous surgery Family History Family History Grandparent Hypertension Carcinoma of colon Malignant neoplasm of prostate Family history of lung cancer Diabetes mellitus Other Acute myocardial infarction Social History Social History Smoking status: Never smoker Second hand tobacco smoke exposure: No Alcohol intake: never Substance use: never Lack of Transportation: No Lack of Food: Never True Current Housing: I Have Housing Concerned About Future Housing: No Difficulty Paying Gas/Electric Bills: No Difficulty Paying for Meds: No Currently Unemployed: No Education: High School Diploma/GED Difficulty w/ Childcare or Family Care: No Spiritual care concerns: No Comments At the time of my signature I agree with nursing past medical history, surgical, social, and family history. There is no relevant family history pertinent to the presenting complaint. Exam Narrative: GENERAL: Well-appearing, well-nourished, and in no acute distress. HEAD: Normocephalic, atraumatic. EYES: PERRLA and EOMI. ENT: Nares clear, no rhinorrhea or epistaxis. Mucous membranes moist. posterior pharynx with erythema and 2+ tonsillar enlargement, no exudates or lesions present. NECK: Supple. No lymphadenopathy CHEST: Clear to auscultation. No respiratory distress. HEART: Regular rate and rhythm. No murmur heard. Normal peripheral pulses. ABDOMEN: Soft, nontender, nondistended, normal active bowel sounds. EXTREMITIES: Normal range of motion. No edema. SKIN: Warm, dry, no rash. NEURO: No focal deficits. Alert and oriented x3. Course Course Level of Care: Express Care Visit Reevaluation(s) Reevaluation #1: Re-evaluated patient notified her that she is positive for strep. We will send her home with oral antibiotics if she can take Tylenol and ibuprofen as needed for pain. Patient verbalized understanding denies any other questions or concerns at this time Date: 09/24/23 Time: 13:25 Vital Signs Vital si
[2023-09-24 12:48] VITALS: BP 119/73; PULSE 73; RESP 16; TEMP 36.3; O2SAT 100
== END 2023-09-24 13:30 | disposition home or self-care (01) ==
PROVIDERS: Emergency Provider Nurse Practitioner Family; Referring Provider Family Medicine
DX: J02.0 Streptococcal pharyngitis (principal)
CPT/HCPCS: 87880; 99213; G0463